=== PATIENT | male | born 1940 | race Caucasian/White ===

== ENCOUNTER → 2017-09-22 | Outpatient (CLI) | payer OTHER, BC | LOC: BHLMT 11:30 | PROVIDERS: ATTEND Nurse Practitioner Family | DX: I25.10 Atherosclerotic heart disease of native coronary artery without angina pectoris (principal); I10 Essential (primary) hypertension; E78.00 Pure hypercholesterolemia, unspecified; R00.1 Bradycardia, unspecified; R42 Dizziness and giddiness; I25.5 Ischemic cardiomyopathy | CPT/HCPCS: 93005-PO ==

== ENCOUNTER → 2017-10-07 | Outpatient (CLI) | payer OTHER, BC | LOC: BHLMT 09:00 | PROVIDERS: ATTEND Internal Medicine Cardiovascular Disease | DX: R00.1 Bradycardia, unspecified (principal); R42 Dizziness and giddiness; I25.10 Atherosclerotic heart disease of native coronary artery without angina pectoris | CPT/HCPCS: 93225-PO; 93226-PO ==